=== PATIENT | female | born 1950 | race Caucasian/White ===

== ENCOUNTER 2017-11-26 23:56 | Emergency (ER) | payer SELFPAY ==
[~2017-11-26] VITALS: Ht 165.1 cm; Wt 86.2 kg
[2017-11-27 00:19] VITALS: BP 115/68
--- NOTE | 2017-11-27 00:27 | Emergency Room Report ---
History of Present Illness General Chief Complaint: Fever Source: Patient Present Illness HPI Is a 67-year-old female with no significant past medical history. She presents with chief complaint of fever for one to 2 days. She has generalized aches with a mild cough but no nausea no vomiting. No diarrhea. No abdominal pain. No urinary complaint. Similar symptom in the past and had a urinary tract infection. Allergies: Coded Allergies: PENICILLINS (Verified Allergy, Unknown, 11/27/17) Patient History Past Medical History: see triage record, old chart reviewed Past Surgical History: none Pertinent Family History: none Now: No Immunizations: other Reviewed Nursing Documentation: PMH: Agreed; PSxH: Agreed Nursing Documentation-PMH Past Medical History: No History, Except For Hx Gastrointestinal Problems: No - Recurrent UTI's Review of Systems Constitutional: Reports: fever Eye: Denies: eye pain, blurred vision ENT: Denies: ear pain, nose congestion, throat swelling Respiratory: Denies: cough, shortness of breath Cardiovascular: Denies: chest pain, palpitations Gastrointestinal: Denies: abdominal pain, diarrhea, nausea, vomiting Musculoskeletal: Denies: back pain, joint pain Skin: Denies: rash Neurological: Denies: headache, numbness Endocrine: Denies: increased thirst, increased urine Hematologic/Lymphatic: Denies: easy bruising All Other Systems: negative except mentioned in HPI Physical Exam Vital Signs Date Time Temp Pulse Resp B/P (MAP) Pulse Ox O2 Delivery O2 Flow Rate FiO2 11/27/17 00:06 99.1 88 16 115/68 98 Room Air 99.1 vitals unremarkable Sp02 EP Interpretation: reviewed, normal General Appearance: well appearing, no apparent distress, alert Head: normocephalic, atraumatic Eyes: bilateral eye PERRL, bilateral eye EOMI ENT: hearing grossly normal, normal pharynx Neck: full range of motion, supple, no meningismus Respiratory: chest non-tender, lungs clear, normal breath sounds Cardiovascular #1: regular rate, rhythm, no murmur Gastrointestinal: normal bowel sounds, non tender, no mass, no organomegaly, no bruit, non-distended Musculoskeletal: back normal, gait/station normal, normal range of motion Neurologic: alert, oriented x3 Psychiatric: mood/affect normal Skin: warm/dry Medical Decision Making Diagnostic Impression: Primary Impression: Fever Qualified Codes: R50.9 - Fever, unspecified Additional Impression: UTI (urinary tract infection) Qualified Codes: N30.00 - Acute cystitis without hematuria ER Course Patient presents with a fever. She does have a mild cough. This may be secondary to URI Symptoms. She also may have urine tract infection. Rocephin given here. She told me that she get microscopic blood in her urine since her 20s. Never had any workup. There is hematuria in her urine. This may be secondary to infection. I explained to her that she need a referral to see a urologist for further workup to rule out neoplastic process. Last Vital Signs Date Time Temp Pulse Resp B/P (MAP) Pulse Ox O2 Delivery O2 Flow Rate FiO2 11/27/17 00:19 99.1 88 16 115/68 98 Room Air 99.1 Status: improved Disposition: HOME, SELF-CARE Condition: Stable Scripts Levofloxacin* (LEVAQUIN*) 500 Mg Tablet 500 MG ORAL DAILY, #7 TAB Prov: JUAN LUIS COLE M.D. 11/27/17 Referrals: NON PHYSICIAN (PCP) Additional Instructions: Follow-up with your in 3-5 days. Return if symptom worsen. Recheck urine in a week to see if there is still microscopic blood. If there is, you will need a referral to see a urologist for further workup. JUAN LUIS COLE M.D. Nov 27, 2017 00:27
[2017-11-27 00:44] LABS: BASOPHILS % (AUTO) 1.1 % (0.0-2.0); EOSINOPHILS % (AUTO) 0.4 % (0.0-3.0); HEMOGLOBIN 13.1 G/DL (12.0-16.0); LYMPHOCYTES % (AUTO) 10.1 % (20.0-45.0); MEAN CORPUSCULAR VOLUME 87 FL (80-99); NEUTROPHILS % (AUTO) 80.3 % (45.0-75.0); PLATELET COUNT 204 K/UL (150-450); RED BLOOD COUNT 4.38 M/UL (4.20-5.40); RED CELL DISTRIBUTION WIDTH 12.1 % (11.6-14.8); WHITE BLOOD COUNT 9.7 K/UL (4.8-10.8)
[2017-11-27 00:45] LABS: APPEARANCE,URINE CLEAR; BILIRUBIN, URINE NEGATIVE (NEGATIVE); COLOR,URINE BROWN; GLUCOSE, URINE (UA) NEGATIVE (NEGATIVE); KETONES,URINE NEGATIVE (NEGATIVE); LEUKOCYTE ESTERASE ,URINE 3+ (NEGATIVE); NITRITE,URINE NEGATIVE (NEGATIVE); PH,URINE 7 (4.5-8.0); PROTEIN,URINE 2+ (NEGATIVE); UROBILINOGEN,URINE 1 MG/DL (0.0-1.0)
[2017-11-27 00:54] LABS: ANION GAP 8 mmol/L (5-15); BLOOD UREA NITROGEN 12 mg/dL (7-18); CALCIUM 8.8 MG/DL (8.5-10.1); CARBON DIOXIDE 27 MMOL/L (21-32); CHLORIDE 100 MMOL/L (98-107); POTASSIUM 3.6 MMOL/L (3.5-5.1); SODIUM 135 MMOL/L (136-145)
[2017-11-27] MEDS ORDERED: cefTRIAXone 1 GM in NS 55 ML IVPB ONE (01:00)
[2017-11-27] MEDS ORDERED: LEVAQUIN500 MG ORAL (01:15)
[2017-11-27 01:30] VITALS: BP 129/86
[2017-11-27 01:31] VITALS: BP 129/86
== END 2017-11-27 01:32 | disposition home or self-care (01) ==
LOC: EMR 11-27 00:23
DX: N30.00 Acute cystitis without hematuria (principal); R50.9 Fever, unspecified; Z88.0 Allergy status to penicillin
CPT/HCPCS: 36415; 80048; 81001; 85025; 96374; 96375; 99283; J0696

== ENCOUNTER 2018-12-22 19:06 | Emergency (ER) | payer OTHER ==
[~2018-12-22] VITALS: Ht 165.1 cm; Wt 79.4 kg
[~2018-12-22 19:06] MED LIST: LEVAQUIN500 MG ORAL
[2018-12-22 19:26] VITALS: BP 153/96
--- NOTE | 2018-12-22 19:29 | NUR ---
ER Nurse Note: Pt came from home c/o sore throat since 12/19. Pt stated it is difficult to swollow, burning when she tires to eat and swollow, difficult to talk due to pain. Pt is concernered about infection. ER PA at pt side; will continue to toni.
--- NOTE | 2018-12-22 19:39 | Emergency Room Report ---
History of Present Illness General Chief Complaint: Sore Throat Source: Patient Present Illness HPI 68 YO Female presents to the ED c/o 03/[address], cough, nasal congestion and bilateral ear pressure x 3 days. She reports being seen in mode and was rx'd an allergy medication. She Denies fevers. She states she has not taken any fever reducing medications today. Denies high fevers, lethargy, neck pain/stiffness, irritability, photophobia dehydration, N/V/D. Denies Cp, Palpitations, LOC, AMS, seizures, paresthesias, or changes in Hearing or vision, no Sudden severe ED LA O. Denies hx of smoking, asthma or COPD. Allergies: Coded Allergies: PENICILLINS (Verified Allergy, Unknown, 12/22/18) Patient History Past Medical History: see triage record Past Surgical History: none Pertinent Family History: none Now: No Reviewed Nursing Documentation: PMH: Agreed; PSxH: Agreed Nursing Documentation-PMH Hx Gastrointestinal Problems: No - Recurrent UTI's Review of Systems All Other Systems: negative except mentioned in HPI Physical Exam Vital Signs Date Time Temp Pulse Resp B/P (MAP) Pulse Ox O2 Delivery O2 Flow Rate FiO2 12/22/18 19:12 98.1 76 16 153/96 (115) 95 Room Air Sp02 EP Interpretation: reviewed, normal General Appearance: no apparent distress, alert, GCS 15, non-toxic Head: normocephalic, atraumatic Eyes: bilateral eye normal inspection, bilateral eye PERRL ENT: hearing grossly normal, normal pharynx - some erythema, normal voice, TMs + canals normal, uvula midline, nasal congestion, other - no exudates, tonsils are surgically abscent Neck: full range of motion, no meningismus, no bony tend Respiratory: chest non-tender, lungs clear, normal breath sounds, no respiratory distress, no wheezing, speaking full sentences Cardiovascular #1: regular rate, rhythm, no edema Musculoskeletal: back normal, gait/station normal, normal range of motion, non- tender Neurologic: alert, oriented x3, responsive, motor strength/tone normal, sensory intact, speech normal, grossly normal Psychiatric: judgement/insight normal Lymphatic: no adenopathy Medical Decision Making PA Attestation Dr. Cintron is my supervising Physician whom patient management has been discussed with. Diagnostic Impression: Primary Impression: Viral upper respiratory tract infection with cough Additional Impression: Sore throat ER Course 68 YO Female presents to the ED c/o 03/[address], cough, nasal congestion and bilateral ear pressure x 3 days. She reports being seen in mode and was rx'd an allergy medication. She Denies fevers. She states she has not taken any fever reducing medications today. Denies high fevers, lethargy, neck pain/stiffness, irritability, photophobia dehydration, N/V/D. Denies Cp, Palpitations, LOC, AMS, seizures, paresthesias, or changes in Hearing or vision, no Sudden severe DE LA O. Denies hx of smoking, asthma or COPD. Ddx considered but are not limited to URI, pneumonia, PE, strep pharyngitis, wiley's, or meningitis. Vital signs: Pt. is afebrile, the remaining VS are WNL H&PE are most consistent with URI- no meningeal signs, oropharynx is not involved, no evidence of bacterial infection at this time. ORDERS: none required at this time, the diagnosis is clinical ED INTERVENTIONS: Lidocaine 2% viscous PO --PT. EDUCATION: Discussed antibiotic resistance with inappropriate prescribing of antibiotics for viral illnesses. Discussed signs and symptoms to indicate viral illness versus bacterial illness. DISCHARGE: At this time pt. is stable for d/c to home. Will provide printed patient care instructions, and any necessary prescriptions. Care plan and follow up instructions have been discussed with the patient prior to discharge. Last Vital Signs Date Time Temp Pulse Resp B/P (MAP) Pulse Ox O2 Delivery O2 Flow Rate FiO2 12/22/18 19:26 98.1 76 16 153/96 95 Room Air Status: improved Disposition: HOME, SELF-CARE Condition: Stable Scripts Ibuprofen* (MOTRIN*) 600 Mg Tablet 600 MG ORAL THREE TIMES A DAY, #20 TAB 0 Refills Prov: Carol Adams 12/22/18 Lidocaine HCl 2% Viscous (Lidocaine HCl 2% Viscous) 100 Ml Solution 10 ML ORAL QID for Sore Throat, #120 ML Prov: Carol Adams 12/22/18 Cetirizine Hcl/Pseudoephedrine (ZYRTEC-D TABLET) 1 Each Tab.er.12h 1 EACH ORAL Q12HR for 10 Days, #20 TAB Prov: Carol Adams 12/22/18 Codeine/Promethazine Hcl* (PROMETHAZINE-CODEINE SYRUP*) 118 Ml Syrup 5 ML ORAL Q6H PRN for For Cough, #120 ML 0 Refills Prov: Carol Adams 12/22/18 Referrals: NON PHYSICIAN (PCP) Patient Instructions: Sore Throat, Upper Respiratory Infection, Adult, Easy-to- Read Additional Instructions: Take medications as directed. Follow up with a Primary Care Provider in 3-5 days, even if your symptoms have resolved. --Please review list of primary care clinics, if you do not already have a primary care provider Return sooner to ED if new symptoms occur, or current symptoms become worse. Do not drink alcohol, drive, or operate heavy machinery while taking Cough Syrup as this may cause drowsiness. - Please note that this Emergency Department Report was dictated using Droidhen[employer] specialist technology software, occasionally this can lead to erroneous entry secondary to interpretation by the dictation equipment. Carol Adams Dec 22, 2018 19:39
[2018-12-22] MEDS ORDERED: Lidocaine 2% Visc 15ml soln ORAL ONE (19:45)
[2018-12-22] MEDS ORDERED: IBUPROFEN600 MG ORAL ×3 (19:53→20:31)
[2018-12-22] MEDS ORDERED: LIDOCAINE VISC100 ML ORAL ×3 (19:53→20:31)
[2018-12-22] MEDS ORDERED: PROMETHAZINE-C118 M1 ORAL (19:53)
[2018-12-22] MEDS ORDERED: ZYRTEC-D TABLE1 EACH ORAL ×3 (19:53→20:31)
[2018-12-22 20:15] VITALS: BP 153/96
--- NOTE | 2018-12-22 20:15 | NUR ---
ER Nurse Note: Pt seen, treated, medically cleared for discharge by ERMD. Discharge instuctions and prescriptions given with repeat verbalization by pt. All orders completed per ERMD orders. Pt requested to have address changed for pharmacy; was able to talk to registeration and prescriptions sent to address of choice requested by pt. All requests completed per pt wishes; all orders completed per ER PA orders. Pt a&ox4, VSS, no signs of distress. Pt denies pain. ID band removed. Pt ambulaitory with steady gait, left with all belongings, left with own transportation.
== END 2018-12-22 20:15 | disposition home or self-care (01) ==
LOC: EMR 19:24
DX: J06.9 Acute upper respiratory infection, unspecified (principal); R05 Cough; R07.0 Pain in throat; Z88.0 Allergy status to penicillin
CPT/HCPCS: 99283

== ENCOUNTER 2019-08-10 17:10 | Emergency (ER) | payer OTHER ==
[~2019-08-10] VITALS: Ht 157.5 cm; Wt 81.6 kg
[~2019-08-10 17:10] MED LIST changes: +IBUPROFEN600 MG ORAL; +LIDOCAINE VISC100 ML ORAL; +PROMETHAZINE-C118 M1 ORAL; +ZYRTEC-D TABLE1 EACH ORAL
[2019-08-10 17:29] VITALS: BP 127/83
--- NOTE | 2019-08-10 17:31 | NUR ---
ED Nurse Note: Patient presents to ER due to approximately 1cm diameter round, itching lesion with redness. Patient noticed it 1hr ago. Denies any wound drainage. Reports no fever or chills. Patient sitting in chair without facial grimacing or guarding noted.
--- NOTE | 2019-08-10 17:41 | Emergency Room Report ---
History of Present Illness General Chief Complaint: Skin Rash/Abscess Source: Patient Present Illness HPI 69-year-old female with no significant past medical history here complaining of noticing slightly pruritic and painful rash in left ankle. Patient reports that she went to [place] a few days ago however did not notice a rash while she was there. Patient reports that she went hiking when she was in [place]. Denies any camping experience recently. Denies fever and chills, pain radiation , erythema and warmth. Denies chest pain, shortness of breath, palpitation, headache and dizziness. Reports that she was sitting at a caf earlier today and noticed a rash on left ankle. Suspects spider bite. Has not taken medication for symptom relief. Small erythematous round lesion noted in the left lateral ankle. No central clearing noted. Pus drainage. Allergies: Coded Allergies: PENICILLINS (Verified Allergy, Unknown, 12/22/18) Patient History Past Medical History: see triage record Past Surgical History: none Pertinent Family History: none Now: No Immunizations: UTD Reviewed Nursing Documentation: PMH: Agreed; PSxH: Agreed Nursing Documentation-PMH Past Medical History: No Stated History Hx Gastrointestinal Problems: No - Recurrent UTI's Review of Systems All Other Systems: negative except mentioned in HPI Physical Exam Vital Signs Date Time Temp Pulse Resp B/P (MAP) Pulse Ox O2 Delivery O2 Flow Rate FiO2 08/10/19 17:22 98.2 75 14 127/83 (98) 94 Room Air Sp02 EP Interpretation: reviewed, normal General Appearance: no apparent distress, alert, GCS 15, non-toxic Head: normocephalic, atraumatic Eyes: bilateral eye normal inspection, bilateral eye PERRL ENT: hearing grossly normal, normal pharynx, no angioedema, normal voice Neck: full range of motion, supple/symm/no masses Respiratory: chest non-tender, lungs clear, normal breath sounds, no rhonchi, no wheezing, speaking full sentences Cardiovascular #1: regular rate, rhythm, no edema, no murmur Cardiovascular #2: 2+ dorsalis pedis (R), 2+ dorsalis pedis (L) Gastrointestinal: normal bowel sounds, non tender, soft, non-distended, no guarding, no rebound Rectal: deferred Genitourinary: no CVA tenderness Musculoskeletal: back normal, no calf tenderness Neurologic: alert, motor strength/tone normal, oriented x3, sensory intact, responsive, speech normal Psychiatric: judgement/insight normal, memory normal, mood/affect normal, no suicidal/homicidal ideation Skin: rash - Small round erythematous lesion not warm to touchLeft lateral ankle without any central clearing Lymphatic: no adenopathy Medical Decision Making PA Attestation All diagnoses and treatment plans were reviewed and discussed with my supervising physician Dr. Mandel Diagnostic Impression: Primary Impression: Insect bite ER Course 69-year-old female with no significant past medical history here complaining of noticing slightly pruritic and painful rash in left ankle. Patient reports that she went to [place] a few days ago however did not notice a rash while she was there. Patient reports that she went hiking when she was in [place]. Denies any camping experience recently. Denies fever and chills, pain radiation , erythema and warmth. Denies chest pain, shortness of breath, palpitation, headache and dizziness. Reports that she was sitting at a caf earlier today and noticed a rash on left ankle. Suspects spider bite. Has not taken medication for symptom relief. Small erythematous round lesion noted in the left lateral ankle. No central clearing noted. Pus drainage. Ddx considered but are not limited to : Cellulitis, DVT, superficial infection, abscess Vital signs: are WNL, pt. is afebrile H&PE are most consistent with: Insect bite possible infection ORDERS: Doxycycline if patient is concerned for tick bitenot present With symptoms, hydrocortisone cream ED INTERVENTIONS: None required at this time. DISCHARGE: At this time pt. is stable for d/c to home. Will provide printed patient care instructions, and any necessary prescriptions. Care plan and follow up instructions have been discussed with the patient prior to discharge. Patient to follow with primary doctor and possible stock or delivery clerk, take medication as directed, if worsening symptoms return to the emergency room Last Vital Signs Date Time Temp Pulse Resp B/P (MAP) Pulse Ox O2 Delivery O2 Flow Rate FiO2 08/10/19 17:29 98.2 14 127/83 94 Room Air 08/10/19 17:22 75 Disposition: HOME, SELF-CARE Condition: Stable Scripts Hydrocortisone/Aloe (Hydrocortisone/Aloe 1% Cream*) Y Cr 1 APPLIC TOPIC Q6H PRN for Itching, #30 GM Prov: Bart Holt 08/10/19 Doxycycline Hyclate (DOXYCYCLINE HYCLATE) 100 Mg Tablet 100 MG PO BID for 7 Days, #14 TAB Prov: Bart Holt 08/10/19 Patient Instructions: Insect Bite, [id number] Additional Instructions: Take medication as directed, follow-up with your primary care provider, if worsening symptoms return to the emergency room Bart Holt Aug 10, 2019 17:41
[2019-08-10] MEDS ORDERED: HYDROCORTISONE-30 GM TOPIC ×2 (17:42→18:01)
[2019-08-10] MEDS ORDERED: DOXYCYCLINE HY100 M6 PO ×2 (17:42→18:01)
[2019-08-10 17:59] VITALS: BP 127/83
--- NOTE | 2019-08-10 17:59 | NUR ---
ER DISCHARGE NOTE: Patient is cleared to be discharged per ERPA, pt is aox4, on room air, with stable vital signs. pt was given dc and prescription instructions, pt was able to verbalize understanding, pt id band removed. pt is able to ambulate with steady gait. pt took all belongings.
== END 2019-08-10 17:59 | disposition home or self-care (01) ==
LOC: EMR 17:41
DX: S90.562A Insect bite (nonvenomous), left ankle, initial encounter (principal); W57.XXXA Bitten or stung by nonvenomous insect and other nonvenomous arthropods, initial encounter; Y92.9 Unspecified place or not applicable; Z88.0 Allergy status to penicillin
CPT/HCPCS: 99282